=== PATIENT | female | born 1985 | race Two or more races ===

== ENCOUNTER 2024-04-12 16:43 | Emergency (ER) | payer OTHER ==
[2024-04-12 16:53] VITALS: BP 152/88; PULSE 102; RESP 20; TEMP 99.9; BMI 37.4
[2024-04-12] MEDS ORDERED: IBUPROFEN 400 MG TABLET (FP) PO ONE (17:20)
[2024-04-12] MEDS: IBUPROFEN 400 MG TABLET (FP) PO ONE (17:23)
== END 2024-04-12 17:41 | disposition home or self-care (01) ==
LOC: JER 16:43 → JERFT 16:43
DX: R50.9 Fever, unspecified (principal); J06.9 Acute upper respiratory infection, unspecified; R05.9 Cough, unspecified; R09.81 Nasal congestion; R00.0 Tachycardia, unspecified; R06.02 Shortness of breath; R07.89 Other chest pain; U07.1 COVID-19
CPT/HCPCS: 0241U-QW; 99283-25